=== PATIENT | male | born 1960 | race American Indian/Alaskan Native ===

== ENCOUNTER 2021-02-06 20:30 | Inpatient (IN) | payer OTHER, MEDICAID ==
[2021-02-06] MEDS ORDERED: ASPIRIN 325 MG TAB PO ONE (21:40)
--- NOTE | 2021-02-06 21:41 | Emergency Department Report ---
ED Chest Pain HPI - General Chief Complaint: Chest Pain Stated Complaint: FAST HEART BEAT PUI?: No Time Seen by Provider: 02/06/21 21:36 Source: patient, EMS Mode of arrival: Stretcher Limitations: No Limitations - History of Present Illness Initial Comments: Patient is a 60-year-old male who presents emergency room with complaints of chest pain, palpitations and shortness of breath. Patient states his symptoms started approximately 3 hours prior to arrival. Patient states that his symptoms are worsening. Patient states his symptoms exacerbated called EMS. Patient states his chest pain, palpitations shortness of breath are better with rest. Patient states that his chest pain, shortness of breath and palpitations are worse with exertion and movement. Patient denies fever and chills. Patient denies cough. Patient also complains of right foot pain. Patient states he stepped in a hole and injured his right foot. Patient states his right foot pain is a 10 out of 10. Patient states that pain is better with rest and worse with movement and palpation and walking. Patient denies calf pain. Patient states his right foot is swollen. Patient denies other trauma. Patient denies recent travel. Patient denies recent international travel. Patient denies exposure to the novel coronavirus. Patient denies sick contacts. Patient denies fever and chills. Patient denies cough. Patient denies diarrhea. Patient denies coming in contact with anybody with symptoms of the novel coronavirus. MD Complaint: chest pain -: Sudden Onset: during rest Pain Location: substernal, left chest Pain Radiation: none Severity: severe Severity scale (0 -10): 10 Quality: sharp Consistency: constant Improves With: rest Worsens With: exertion re: dyspnea. denies: nausea, vomting, diaphoresis, sense of impending doom Other Symptoms: palpitations. denies: cough, fever, syncope, rash, acid taste in mouth, leg swelling Treatments Prior to Arrival: none Aspirin use within the Past 7 Days: (1) Yes - Related Data On Oral Contraceptives: No Allergies Allergy/AdvReac Type Severity Reaction Status Date / Time No Known Allergies Allergy Verified 02/06/21 22:28 Heart Score - HEART Score History: Moderately suspicious EKG: Non-specific Age: 45-65 Risk factors: > 3 risk factors or hx of atherosclerotic disease Troponin: < normal limit HEART Score: 5 - EKG Read Time Time EKG Completed: 22:03 EKG Read Time: 22:05 ED Review of Systems ROS: Stated complaint: FAST HEART BEAT Other details as noted in HPI Constitutional: denies: chills, fever Eyes: denies: eye pain, eye discharge, vision change ENT: denies: ear pain, throat pain Respiratory: see HPI, shortness of breath. denies: cough, wheezing Cardiovascular: as per HPI, chest pain, palpitations, dyspnea on exertion Endocrine: no symptoms reported Gastrointestinal: denies: abdominal pain, nausea, vomiting, diarrhea Genitourinary: denies: urgency, dysuria Musculoskeletal: denies: back pain, joint swelling, arthralgia Skin: denies: rash, lesions Neurological: denies: headache, weakness, paresthesias Psychiatric: denies: anxiety, depression Hematological/Lymphatic: denies: easy bleeding, easy bruising ED Past Medical Hx - Past Medical History Previous Medical History?: Yes Hx Hypertension: Yes Hx Heart Attack/AMI: Yes Additional medical history: Hyperlipidemia - Surgical History Past Surgical History?: No - Family History Family history: no significant - Social History Smoking Status: Current Every Day Smoker Substance Use Type: None ED Physical Exam - General Limitations: No Limitations General appearance: alert, in no apparent distress - Head Head exam: Present: atraumatic, normocephalic - Eye Eye exam: Present: normal appearance - ENT ENT exam: Present: mucous membranes moist - Neck Neck exam: Present: normal inspection - Respiratory Respiratory exam: Present: normal lung sounds bilaterally. Absent: respiratory distress, wheezes, rales - Cardiovascular Cardiovascular Exam: Present: regular rate, normal rhythm, normal heart sounds. Absent: systolic murmur, diastolic murmur, rubs, gallop - GI/Abdominal GI/Abdominal exam: Present: soft, normal bowel sounds. Absent: distended, tenderness, guarding - Rectal Rectal exam: Present: deferred - Extremities Exam Extremities exam: Present: normal inspection - Back Exam Back exam: Present: normal inspection - Neurological Exam Neurological exam: Present: alert, oriented X3 - Psychiatric Psychiatric exam: Present: normal affect, normal mood - Skin Skin exam: Present: warm, dry, intact, normal color. Absent: rash ED Course Vital Signs 02/06/21 02/06/21 02/06/21 21:34 21:42 22:03 Temperature 98.8 F Pulse Rate 112 H 93 H Respiratory Rate Blood Pressure O2 Sat by Pulse 95 Oximetry 02/06/21 02/06/21 02/06/21 22:12 22:15 22:30 Temperature Pulse Rate 103 H 102 H 108 H Respiratory 19 23 16 Rate Blood Pressure O2 Sat by Pulse 98 99 98 Oximetry 02/06/21 02/06/21 02/06/21 22:45 23:01 23:15 Temperature Pulse Rate 106 H 103 H 100 H Respiratory 18 23 18 Rate Blood Pressure O2 Sat by Pulse 95 96 96 Oximetry 02/06/21 02/06/21 02/06/21 23:31 23:45 23:53 Temperature Pulse Rate 91 H 107 H 93 H Respiratory 14 13 18 Rate Blood Pressure 143/76 120/66 120/66 O2 Sat by Pulse 92 93 99 Oximetry 02/07/21 02/07/21 02/07/21 00:01 00:03 00:15 Temperature Pulse Rate 106 H 96 H 103 H Respiratory 15 14 20 Rate Blood Pressure 129/84 129/84 121/77 O2 Sat by Pulse 93 95 95 Oximetry 02/07/21 02/07/21 02/07/21 00:31 00:45 01:01 Temperature Pulse Rate 92 H 93 H 97 H Respiratory 19 17 12 Rate Blood Pressure 135/74 129/70 128/72 O2 Sat by Pulse 95 94 94 Oximetry 02/07/21 02/07/21 02/07/21 01:15 01:31 01:45 Temperature Pulse Rate 95 H 97 H 89 Respiratory 18 18 17 Rate Blood Pressure 118/63 109/73 120/69 O2 Sat by Pulse 93 92 97 Oximetry 02/07/21 02/07/21 02/07/21 02:01 02:15 02:31 Temperature Pulse Rate 96 H 97 H 94 H Respiratory 19 15 17 Rate Blood Pressure 111/63 118/68 139/92 O2 Sat by Pulse 94 95 94 Oximetry 02/07/21 02/07/21 02/07/21 02:45 03:01 03:15 Temperature Pulse Rate 91 H 96 H 94 H Respiratory 15 16 17 Rate Blood Pressure 123/82 128/88 116/75 O2 Sat by Pulse 93 96 97 Oximetry 02/07/21 02/07/21 02/07/21 03:31 03:45 04:01 Temperature Pulse Rate 88 71 80 Respiratory 19 12 20 Rate Blood Pressure 102/75 116/75 117/75 O2 Sat by Pulse 94 96 93 Oximetry 02/07/21 02/07/21 02/07/21 04:15 04:31 04:45 Temperature Pulse Rate 81 79 90 Respiratory 11 L 13 17 Rate Blood Pressure 114/76 110/70 111/70 O2 Sat by Pulse 95 95 96 Oximetry 02/07/21 02/07/21 02/07/21 05:01 05:15 05:31 Temperature Pulse Rate 85 86 79 Respiratory 23 16 13 Rate Blood Pressure 110/58 118/64 131/93 O2 Sat by Pulse 90 90 99 Oximetry - Reevaluation(s) Reevaluation #1: Patient states he is feeling better. Patient states his pain is better. Patient states his palpitations have improved. 02/06/21 23:10 Reevaluation #2: I discussed all results with patient. I discussed plan of care with patient. Patient agrees with plan of care and admission. Patient to be admitted to the hospitalist service. 02/07/21 00:32 - Consultations Consultation #1: Hospitalist consulted for admission. Hospitalist to admit patient. 02/07/21 00:33 ALYCIA score - Alycia Score Age > 65: (0) No Aspirin use within the Past 7 Days: (1) Yes 3 or more CAD Risk Factors: (1) Yes 2 or more Angina events in past 24 hrs: (1) Yes Known CAD with more than 50% Stenosis: (0) No Elevated Cardiac Markers: (0) No ST Deviation Greater than 0.5mm: (0) No ALYCIA Score: 3 ED Medical Decision Making - Lab Data Result diagrams: 02/07/21 03:07 02/07/21 03:07 - EKG Data -: EKG Interpreted by Me EKG shows normal: axis, intervals, QRS complexes, ST-T waves Rate: normal - EKG Data Interpretation: other (Atrial fibrillation) - Radiology Data Radiology results: report reviewed, image reviewed interpreted by me: Chest x-ray: No pneumonia, no pneumothorax, no foreign body, no osseous fi ndings, no acute findings CHEST 1 VIEW INDICATION: Chest Pain. Generalized chest pain for the past several days COMPARISON: None FINDINGS: SUPPORT DEVICES: None. HEART: Within normal limits. LUNGS/PLEURA: No acute air space or interstitial disease. ADDITIONAL FINDINGS: None. IMPRESSION: 1. No acute findings. Right foot-2 views INDICATION: FOOT PAIN.. COMPARISON: None. IMPRESSION: Tiny corticated density at the tip of the lateral malleolus could represent a subacute/chronic avulsion injury. Otherwise no acute osseous normality. Mild generalized soft tissue swelling throughout the foot. Normal alignment. Mild generalized degenerative changes throughout the foot. - Medical Decision Making Patient is a 60-year-old male who presents emergency room with complaints of chest pain, shortness of breath and palpitations. Patient also complained of right foot pain after injury. Patient had an EKG which shows A. fib. Patient does have a history of A. fib 6 new-onset A. fib. Patient's ST segments are normal. Patient's EKG does not show a STEMI. I personally reviewed EKG. Patient had a chest x-ray which is negative for acute finding. I personally reviewed the chest x-ray. Patient had labs done which were essentially unre markable. Patient troponin was negative. Patient had a right foot x-ray for his right foot pain and it was negative for acute finding but shows subacute avulsion injury. Patient will be instructed to follow-up with a orthopedist after discharge from the hospital. Patient admitted to the hospital service for further evaluation treatment and rule out ACS. Critical care time documented due to the multiple reassessments, prolonged time at the bedside, interpretation of diagnostics and labs. - Differential Diagnosis Chest pain, ACS, palpitations, A. fib, electrolyte imbalance, Critical Care Time: Yes Critical care time in (mins) excluding proc time.: 35 Critical care attestation.: If time is entered above; I have spent that time in minutes in the direct care of this critically ill patient, excluding procedure time. Critical Care Time: 35 minutes ED Disposition Clinical Impression: New onset atrial fibrillation, Shortness of breath, Right foot pain Chest pain Qualifiers: Chest pain type: unspecified Qualified Code(s): R07.9 - Chest pain, unspecified Contusion, foot Qualifiers: Encounter type: initial encounter Laterality: right Qualified Code(s): S90.31XA - Contusion of right foot, initial encounter Disposition: 09 OP ADMIT IP TO THIS HOSP Is pt being admited?: Yes Does the pt Need Aspirin: No Condition: Critical Time of Disposition: 00:32
--- NOTE | 2021-02-06 22:09 | XRay Report ---
CHEST 1 VIEW INDICATION: Chest Pain. Generalized chest pain for the past several days COMPARISON: None FINDINGS: SUPPORT DEVICES: None. HEART: Within normal limits. LUNGS/PLEURA: No acute air space or interstitial disease. ADDITIONAL FINDINGS: None. IMPRESSION: 1. No acute findings. Signer Name: Ashwin Covarrubias MD Signed: 02/06/2021 10:05 PM Workstation Name: [id number]
--- NOTE | 2021-02-06 22:12 | XRay Report ---
Right foot-2 views INDICATION: FOOT PAIN.. COMPARISON: None. IMPRESSION: Tiny corticated density at the tip of the lateral malleolus could represent a subacute/c hronic avulsion injury. Otherwise no acute osseous normality. Mild generalized soft tissue swelling throughout the foot. Normal alignment. Mild generalized degenerative changes throughout the foot. Signer Name: Ashwin Covarrubias MD Signed: 02/06/2021 10:07 PM Workstation Name: [id number]
[2021-02-06 22:24] LABS: Basophils # (Auto) 0.1 K/mm3 (0.0-0.1); Eosinophils # (Auto) 0.1 K/mm3 (0.0-0.4); Eosinophils % (Auto) 1.7 % (0.0-4.3); Hematocrit 38.5 % (35.5-45.6); Hemoglobin 13.1 gm/dl (11.8-15.2); Lymphocytes % (Auto) 23.5 % (13.4-35.0); Mean Corpuscular HGB Conc 34 % (32-34); Mean Corpuscular Volume 90 fl (84-94); Monocytes # (Auto) 0.9 K/mm3 (0.0-0.8); Monocytes % (Auto) 10.2 % (0.0-7.3); Platelet Count 315 K/mm3 (140-440); Red Blood Count 4.28 M/mm3 (3.65-5.03); Red Cell Distribution Width 15.5 % (13.2-15.2)
[2021-02-06] MEDS ORDERED: MORPHINE 4 MG/1 ML INJ IV ONE (22:27)
[2021-02-06] MEDS ORDERED: ONDANSETRON 4 MG/2 ML INJ IV ONE (22:27)
[2021-02-06] MEDS ORDERED: MORPHINE 2 MG/1 ML INJ IV ONE (22:29)
[2021-02-06 22:32] LABS: Alanine Aminotransferase 26 units/L (7-56); Albumin 3.7 g/dL (3.9-5); BUN/Creatinine Ratio 22; Blood Urea Nitrogen 26 mg/dL (9-20); Hemolysis Index 3
[2021-02-06 22:39] LABS: INR 0.94 (0.87-1.13); Partial Thromboplastin Time 30.9 Sec. (24.2-36.6)
[2021-02-07] MEDS ORDERED: ACETAMINOPHEN 325 MG TAB PO PRN (02:42)
[2021-02-07] MEDS ORDERED: traMADol 50 MG TAB PO PRN (02:42)
[2021-02-07] MEDS ORDERED: NITROGLYCERIN 0.4 MG TAB SUBL SL PRN (02:42)
--- NOTE | 2021-02-07 02:49 | History and Physical Report ---
History of Present Illness Date of examination: 02/07/21 Date of admission: 02/07/21 00:36 Chief complaint: Chest pain History of present illness: 60-year-old male with past medical history of hypertension, heart attack, hyperlipidemia was brought to the emergency room because of chest pain, palpitations and shortness of breath for 3 hours prior to arrival. Chest pain is sharp 10/10 substernal and left-sided. Patient states that his symptoms are worsening. Patient states his symptoms exacerbated called EMS. Patient states his chest pain, palpitations shortness of breath are better with rest. Patient states that his chest pain, shortness of breath and palpitations are worse with exertion and movement. Patient denies fever and chills. Patient denies cough. Patient also complains of right foot pain. Patient states he stepped in a hole and injured his right foot. Patient states his right foot pain is a 10 out of 10. Patient states that pain is better with rest and worse with movement and palpation and walking. Patient denies calf pain. Patient states his right foot is swollen. Patient denies other trauma. In the emergency room initial cardiac enzyme is negative troponin is 0.010 Past History Past Medical History: hypertension, hyperlipidemia (Heart attack), other Medications and Allergies Allergies Allergy/AdvReac Type Severity Reaction Status Date / Time No Known Allergies Allergy Verified 02/06/21 22:28 Review of Systems Cardiovascular: chest pain, palpitations, rapid/irregular heart beat Musculoskeletal: other (Right foot pain) Exam - Constitutional Vitals: Temp Pulse Resp BP Pulse Ox 98.8 F 97 H 12 128/72 94 02/06/21 21:34 02/07/21 01:01 02/07/21 01:01 02/07/21 01:01 02/07/21 01:01 General appearance: Present: no acute distress, well-nourished - EENT Eyes: Present: PERRL ENT: hearing intact, clear oral mucosa - Neck Neck: Present: supple, normal ROM - Respiratory Respiratory effort: normal Respiratory: bilateral: diminished - Cardiovascular Rhythm: irregularly irregular Heart Sounds: Present: S1 & S2. Absent: rub, click - Extremities Extremities: pulses symmetrical, No edema Peripheral Pulses: within normal limits - Abdominal General gastrointestinal: Present: soft, non-tender, non-distended, normal bowel sounds Male genitourinary: Present: normal - Integumentary Integumentary: Present: clear, warm, dry - Musculoskeletal Musculoskeletal: gait normal, strength equal bilaterally - Psychiatric Psychiatric: appropriate mood/affect, intact judgment & insight - Neurologic Neurologic: CNII-XII intact, moves all extremities HEART Score - HEART Score EKG: Non-specific Age: 45-65 Risk factors: > 3 risk factors or hx of atherosclerotic disease Troponin: Troponin T < 0.010 ng/mL (0.00-0.029) 02/07/21 00:47 Troponin: < normal limit Results - Labs CBC & Chem 7: 02/06/21 21:47 02/06/21 21:47 Labs: Laboratory Last Values WBC 8.4 K/mm3 (4.5-11.0) 02/06/21 21:47 RBC 4.28 M/mm3 (3.65-5.03) 02/06/21 21:47 Hgb 13.1 gm/dl (11.8-15.2) 02/06/21 21:47 Hct 38.5 % (35.5-45.6) 02/06/21 21:47 MCV 90 fl (84-94) 02/06/21 21:47 MCH 31 pg (28-32) 02/06/21 21:47 MCHC 34 % (32-34) 02/06/21 21:47 RDW 15.5 % (13.2-15.2) H 02/06/21 21:47 Plt Count 315 K/mm3 (140-440) 02/06/21 21:47 Lymph % (Auto) 23.5 % (13.4-35.0) 02/06/21 21:47 [place] % (Auto) 10.2 % (0.0-7.3) H 02/06/21 21:47 Eos % (Auto) 1.7 % (0.0-4.3) 02/06/21 21:47 Baso % (Auto) 1.0 % (0.0-1.8) 02/06/21 21:47 Lymph # (Auto) 2.0 K/mm3 (1.2-5.4) 02/06/21 21:47 [place] # (Auto) 0.9 K/mm3 (0.0-0.8) H 02/06/21 21:47 Eos # (Auto) 0.1 K/mm3 (0.0-0.4) 02/06/21 21:47 Baso # (Auto) 0.1 K/mm3 (0.0-0.1) 02/06/21 21:47 Seg Neutrophils % 63.6 % (40.0-70.0) 02/06/21 21:47 Seg Neutrophils # 5.4 K/mm3 (1.8-7.7) 02/06/21 21:47 PT 13.1 Sec. (12.2-14.9) 02/06/21 21:47 INR 0.94 (0.87-1.13) 02/06/21 21:47 APTT 30.9 Sec. (24.2-36.6) 02/06/21 21:47 Sodium 136 mmol/L (137-145) L 02/06/21 21:47 Potassium 4.1 mmol/L (3.6-5.0) 02/06/21 21:47 Chloride 104.7 mmol/L (98-107) 02/06/21 21:47 Carbon Dioxide 22 mmol/L (22-30) 02/06/21 21:47 Anion Gap 13 mmol/L 02/06/21 21:47 BUN 26 mg/dL (9-20) H 02/06/21 21:47 Creatinine 1.2 mg/dL (0.8-1.3) 02/06/21 21:47 Estimated GFR > 60 ml/min 02/06/21 21:47 BUN/Creatinine Ratio 22 % 02/06/21 21:47 Glucose 110 mg/dL (75-100) H 02/06/21 21:47 Calcium 9.0 mg/dL (8.4-10.2) 02/06/21 21:47 Total Bilirubin 0.20 mg/dL (0.1-1.2) 02/06/21 21:47 AST 20 units/L (5-40) 02/06/21 21:47 ALT 26 units/L (7-56) 02/06/21 21:47 Alkaline Phosphatase 101 units/L (35-129) 02/06/21 21:47 Troponin T < 0.010 ng/mL (0.00-0.029) 02/07/21 00:47 Total Protein 7.2 g/dL (6.3-8.2) 02/06/21 21:47 Albumin 3.7 g/dL (3.9-5) L 02/06/21 21:47 Albumin/Globulin Ratio 1.1 % 02/06/21 21:47 - Imaging and Cardiology Chest x-ray: report reviewed Assessment and Plan VTE prophylaxis?: Chemical Plan of care discussed with patient/family: Yes - Patient Problems (1) Acute coronary syndrome Current Visit: Yes Status: Acute Plan to address problem: Admit the patient to the medical telemetry. Aspirin 325 mg p.o. daily. Lipitor 40 mg p.o. daily. Nitroglycerin as needed. Morphine 2 mg IV every 4 hours as needed. We will do the serial cardiac enzyme. Echocardiogram. Cardiology evaluation (2) New onset atrial fibrillation Current Visit: Yes Status: Acute Plan to address problem: Lopressor 25 mg p.o. twice daily. We will do the serial cardiac enzyme. Echocardiogram. Will consult cardiology for evaluation. Heparin 5000 units subcu every 8 hours (3) Hypertension Current Visit: Yes Status: Acute Plan to address problem: Lopressor 25 mg p.o. twice daily. Hydralazine 10 mg IV every 6 hours as needed. We continue the home medication (4) Hyperlipidemia Current Visit: Yes Status: Acute Plan to address problem: Lipitor 40 mg p.o. daily. We recheck the lipid panel in the morning (5) Right foot pain Current Visit: Yes Status: Acute Plan to address problem: Tylenol 650 mg p.o. every 6 hours as needed. Morphine 2 mg IV every 4 hours as needed. We will monitor the patient closely. If needed will consult orthopedic (6) DVT prophylaxis Current Visit: Yes Status: Acute Plan to address problem: Heparin 5000 units subcu every 8 hours for DVT prophylaxis. Protonix 40 mg p.o. daily for GI prophylaxis. Patient is a full code.
[2021-02-07] MEDS ORDERED: hydrALAZINE 20 MG/1 ML INJ IV PRN (02:54)
[2021-02-07] MEDS: MORPHINE 4 MG/1 ML INJ IV PRN ×3 (03:10→16:14)
[2021-02-07 03:40] LABS: Basophils # (Auto) 0.1 K/mm3 (0.0-0.1); Basophils % (Auto) 0.9 % (0.0-1.8); Eosinophils # (Auto) 0.3 K/mm3 (0.0-0.4); Eosinophils % (Auto) 3.3 % (0.0-4.3); Hematocrit 36.5 % (35.5-45.6); Hemoglobin 12.8 gm/dl (11.8-15.2); Lymphocytes # (Auto) 2.1 K/mm3 (1.2-5.4); Mean Corpuscular HGB Conc 35 % (32-34); Mean Corpuscular Volume 88 fl (84-94); Monocytes # (Auto) 0.9 K/mm3 (0.0-0.8); Monocytes % (Auto) 10.7 % (0.0-7.3); Platelet Count 326 K/mm3 (140-440); Red Blood Count 4.13 M/mm3 (3.65-5.03); Red Cell Distribution Width 15.8 % (13.2-15.2)
[2021-02-07 03:47] LABS: BUN/Creatinine Ratio 27; Blood Urea Nitrogen 27 mg/dL (9-20); Calcium 9.3 mg/dL (8.4-10.2); Chol/HDL Ratio 3.13 %; HDL Cholesterol 46 mg/dL (40-59); Hemolysis Index 2; LDL Cholesterol,Direct 95 mg/dL (50-130)
[2021-02-07] MEDS ORDERED: HEPARIN 5,000 UNIT/1 ML VIAL SUB-Q SCH (06:00)
--- NOTE | 2021-02-07 11:24 | Consultation ---
History of Present Illness Consult date: 02/07/21 Consult reason: atrial fibrillation History of present illness: This is a 60-year old M who is homeless but usually receives his care at the [facility]. He presents to this hospital with complaints of chest pain. Chest pain is poorly characterized and non-exertional. Denies shortness of breath and denies palpitations. No lower extremity edema. Troponin measurements were normal. Chest x-ray reports no evidence of interstitial edema. An ECG done shows atrial fibrillation with a well controlled ventricular rate. A cardiac consultation has been requested for atrial fibrillation. Patient reports a history of atrial fibrillation. Medications at the bedside shows he takes metoprolol for rate control but it is unclear what he takes for oral anticoagulation. Patient states he did not bring all his medications with him. He denies recent cardiac workup. Past History Past Medical History: atrial fib, hypertension, hyperlipidemia Medications and Allergies Allergies Allergy/AdvReac Type Severity Reaction Status Date / Time No Known Allergies Allergy Verified 02/07/21 10:57 Active Meds: Active Medications Acetaminophen (Acetaminophen 325 Mg Tab) 650 mg PO Q6H PRN PRN Reason: Pain, Mild (1-3) Aspirin (Aspirin Ec 325 Mg Tab) 325 mg PO QDAY [facility]R[place]O Atorvastatin Calcium (Atorvastatin 40 Mg Tab) 40 mg PO QHS [facility] Heparin Sodium (Porcine) (Heparin 5,000 Unit/1 Ml Vial) 5,000 unit SUB-Q Q8HR [facility]R[place]O Last Admin: 02/07/21 05:35 Dose: 5,000 unit Documented by: Hydralazine HCl (Hydralazine 20 Mg/1 Ml Inj) 10 mg IV Q6H PRN PRN Reason: Blood Pressure Metoprolol Tartrate (Metoprolol Tartrate 25 Mg Tab) 25 mg PO BID CATRACHO Morphine Sulfate (Morphine 4 Mg/1 Ml Inj) 2 mg IV Q5MIN PRN PRN Reason: Chest Pain Last Admin: 02/07/21 11:02 Dose: 2 mg Documented by: Nitroglycerin (Nitroglycerin 0.4 Mg Tab Subl) 0.4 mg SL Q5M PRN PRN Reason: Chest Pain Pantoprazole Sodium (Pantoprazole 40 Mg Tab) 40 mg PO QDAY CATRACHO Sodium Chloride (Sodium Chloride 0.9% 10 Ml Flush Syringe) 10 ml IV PRN PRN PRN Reason: LINE FLUSH Tramadol HCl (Tramadol 50 Mg Tab) 50 mg PO Q6H PRN PRN Reason: Pain, Moderate (4-6) Review of Systems Cardiovascular: chest pain, no palpitations, no shortness of breath Physical Examination Vital Signs Temp Pulse 98.8 F 112 H 02/06/21 21:34 02/06/21 21:34 General appearance: no acute distress HEENT: Positive: PERRL Neck: Positive: trachea midline Cardiac: Positive: irregularly irregular Lungs: Positive: Decreased Breath Sounds Neuro: Positive: Grossly Intact Extremities: Absent: edema Results 02/07/21 03:07 02/07/21 03:07 Cardiac Enzymes 02/06/21 Range/Units 21:47 AST 20 (5-40) units/L Coagulation 02/06/21 Range/Units 21:47 PT 13.1 (12.2-14.9) Sec. INR 0.94 (0.87-1.13) APTT 30.9 (24.2-36.6) Sec. Lipids 02/07/21 Range/Units 03:07 Triglycerides 74 (2-149) mg/dL Cholesterol 144 (50-199) mg/dL HDL Cholesterol 46 (40-59) mg/dL Cholesterol/HDL Ratio 3.13 % CBC 02/06/21 02/07/21 Range/Units 21:47 03:07 WBC 8.4 8.2 (4.5-11.0) K/mm3 RBC 4.28 4.13 (3.65-5.03) M/mm3 Hgb 13.1 12.8 (11.8-15.2) gm/dl Hct 38.5 36.5 (35.5-45.6) % Plt Count 315 326 (140-440) K/mm3 Lymph # (Auto) 2.0 2.1 (1.2-5.4) K/mm3 [place] # (Auto) 0.9 H 0.9 H (0.0-0.8) K/mm3 Eos # (Auto) 0.1 0.3 (0.0-0.4) K/mm3 Baso # (Auto) 0.1 0.1 (0.0-0.1) K/mm3 Comprehensive Metabolic Panel 02/06/21 02/07/21 Range/Units 21:47 03:07 Sodium 136 L 138 (137-145) mmol/L Potassium 4.1 4.3 (3.6-5.0) mmol/L Chloride 104.7 103.4 (98-107) mmol/L Carbon Dioxide 22 25 (22-30) mmol/L BUN 26 H 27 H (9-20) mg/dL Creatinine 1.2 1.0 (0.8-1.3) mg/dL Glucose 110 H 120 H (75-100) mg/dL Calcium 9.0 9.3 (8.4-10.2) mg/dL AST 20 (5-40) units/L ALT 26 (7-56) units/L Alkaline Phosphatase 101 (35-129) units/L Total Protein 7.2 (6.3-8.2) g/dL Albumin 3.7 L (3.9-5) g/dL Assessment and Plan Atrial fibrillation, chronic Chest pain, atypical Echocardiogram for LVEF assessment. Obtain records from the [facility]. CanDiag thallium stress test before discharge. Continue metoprolol for atrial fibrillation. Will use Eliquis for oral anticoagulation.
[2021-02-07] MEDS: PANTOPRAZOLE 40 MG TAB PO SCH (11:39)
[2021-02-07] MEDS: METOPROLOL TARTRATE 25 MG TAB PO SCH ×2 (11:39→22:43)
--- NOTE | 2021-02-07 12:49 | Event Note ---
Date: 02/07/21 Patient with chest pain. For stress test tomorrow. I have seen and examined him. He also has many social needs.
[2021-02-07] MEDS: SPIRONOLACTONE 25 MG TAB PO SCH (13:41)
[2021-02-07] MEDS: FUROSEMIDE 20 MG TAB PO SCH (13:41)
[2021-02-07] MEDS: LISINOPRIL 5 MG TAB PO SCH (13:41)
[2021-02-07 13:48] LABS: Hematocrit 40.7 % (35.5-45.6); Hemoglobin 13.3 gm/dl (11.8-15.2); Mean Corpuscular HGB Conc 33 % (32-34); Mean Corpuscular Volume 89 fl (84-94); Platelet Count 375 K/mm3 (140-440); Red Blood Count 4.55 M/mm3 (3.65-5.03); Red Cell Distribution Width 15.6 % (13.2-15.2)
[2021-02-07 14:00] LABS: INR 1.16 (0.87-1.13)
[2021-02-07 14:01] LABS: Partial Thromboplastin Time 31.9 Sec. (24.2-36.6)
[2021-02-07] MEDS: APIXABAN 5 MG TAB PO SCH (22:43)
[2021-02-08] MEDS ORDERED: oxyCODONE /ACETAMINOPHEN 5-325MG TAB PO ONE ×2 (00:56→08:00)
[2021-02-08] MEDS ORDERED: REGADENOSON 0.4 MG/5 ML INJ IV ONE (07:47)
--- NOTE | 2021-02-08 09:14 | Electrocardiograph Report ---
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
--- NOTE | 2021-02-08 09:19 | Electrocardiograph Report ---
[facility] Test Date: 2021-02-07 Test Time: 10:10:20 Pat Name: RENEE MEANS JR Department: Room: A467 1 Gender: M Environmental Systems Coordinator: JACQUELIN : 1960 Requested By: RUFINA MURRAY Order Number: [id number] Reading MD: Ryan Sidhu Measurements Intervals [place] Rate: 73 P: [place]: QRS: 31 QRSD: 95 T: 48 QT: 401 QTc: 450 Interpretive Statements Atrial fibrillation nonspecific st-t Compared to ECG 02/06/2021 22:03:10 Low QRS voltage now present Electronically Signed On 02-08-2021 9:19:09 EDT by Ryan Sidhu
--- NOTE | 2021-02-08 09:23 | Electrocardiograph Report ---
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
[2021-02-08] MEDS ORDERED: SODIUM CHLORIDE 0.9% 500 ML 500 ML ONE (09:29)
--- NOTE | 2021-02-08 09:38 | Progress Note ---
Assessment and Plan - Patient Problems (1) Shortness of breath Current Visit: Yes Status: Acute Plan to address problem: Shortness of breath may represent decompensation of heart failure. His presenting chest x-ray showed clear lungs, we will repeat chest x-ray to assess for intercurrent interstitial edema. We will begin treatment with intravenous milrinone in addition to diuretics. (2) Atrial fibrillation Current Visit: Yes Status: Acute Plan to address problem: Atrial fibrillation of uncertain duration and chronicity, we will continue rate control therapy and oral anticoagulation. (3) Dilated cardiomyopathy Current Visit: Yes Status: Acute Plan to address problem: Patient's four-chamber cardiomyopathy is likely of longstanding, we do not yet have his records from the [facility] for review. Continue guideline directed medical therapy as tolerated, patient completed a Lexiscan thallium stress test today for ischemic evaluation, results are pending. Subjective Date of service: 02/08/21 Interval history: Patient completed Lexiscan stress test this morning, results are pending. He remains in atrial fibrillation, with a well-controlled ventricular rate. This morning, he appears a little bit more dyspneic than on presentation, but no chest pain and no edema. Objective Vital Signs Temp Pulse Pulse Resp BP BP Pulse Ox 02/08/21 04:22 97.2 F L 87 18 105/61 94 02/08/21 01:00 20 97 02/08/21 00:00 87 02/07/21 22:43 101 H 127/78 02/07/21 22:40 97.4 F L 77 18 127/78 97 02/07/21 16:30 97.7 F 86 18 131/95 93 02/07/21 13:41 80 136/82 02/07/21 13:23 80 18 97 02/07/21 12:00 97.8 F 76 18 136/82 97 02/07/21 11:39 73 124/66 02/07/21 10:03 124/66 - Physical Examination General: Other (Mild dyspnea) HEENT: Positive: PERRL Neck: Positive: trachea midline Cardiac: Positive: irregularly irregular Lungs: Positive: Decreased Breath Sounds Neuro: Positive: Grossly Intact Abdomen: Positive: Soft Extremities: Absent: edema - Labs and Meds Coagulation 02/07/21 Range/Units 12:46 PT 15.4 H (12.2-14.9) Sec. INR 1.16 H (0.87-1.13) APTT 31.9 (24.2-36.6) Sec. CBC 02/07/21 Range/Units 12:46 WBC 7.9 (4.5-11.0) K/mm3 RBC 4.55 (3.65-5.03) M/mm3 Hgb 13.3 (11.8-15.2) gm/dl Hct 40.7 (35.5-45.6) % Plt Count 375 (140-440) K/mm3 Comprehensive Metabolic Panel 02/07/21 Range/Units 12:46 Creatinine 0.9 (0.8-1.3) mg/dL
[2021-02-08] MEDS ORDERED: ASPIRIN EC 325 MG TAB PO SCH (10:00)
--- NOTE | 2021-02-08 10:13 | Progress Note ---
Assessment and Plan Assessment and plan: 1) Acute coronary syndrome Current Visit: Yes Status: Acute Plan to address problem: Admit the patient to the medical telemetry. Aspirin 325 mg p.o. daily. Lipitor 40 mg p.o. daily. Nitroglycerin as needed. Morphine 2 mg IV every 4 hours as needed. We will do the serial cardiac enzyme. Echocardiogram. Cardiology ev aluation (2) New onset atrial fibrillation Current Visit: Yes Status: Acute Plan to address problem: Lopressor 25 mg p.o. twice daily. We will do the serial cardiac enzyme. Echocardiogram. Will consult cardiology for evaluation. Heparin 5000 units subcu every 8 hours (3) Hypertension Current Visit: Yes Status: Acute Plan to address problem: Lopressor 25 mg p.o. twice daily. Hydralazine 10 mg IV every 6 hours as needed. We continue the home medication (4) Hyperlipidemia Current Visit: Yes Status: Acute Plan to address problem: Lipitor 40 mg p.o. daily. We recheck the lipid panel in the morning (5) Right foot pain Current Visit: Yes Status: Acute Plan to address problem: Tylenol 650 mg p.o. every 6 hours as needed. Morphine 2 mg IV every 4 hours as needed. We will monitor the patient closely. If needed will consult orthopedic (6) DVT prophylaxis Current Visit: Yes Status: Acute Plan to address problem: Heparin 5000 units subcu every 8 hours for DVT prophylaxis. Protonix 40 mg p.o. daily for GI prophylaxis. Patient is a full code. 02/08/21 Patient with hypertension, hyperlipidemia, presents with chest pain. EF 20-25%. Patient started on Milrinone drip for possible acute systolic CHF, as per cardiology Patient needs social service. he is homeless. Quality Lab Technician aware. History Interval history: Chest pain Hospitalist Physical - Physical exam Narrative exam: Gen:Not in acute distress, lying in bed HEENT:Normocephalic, atraumatic Neck:supple, no JVD Lungs:clear to auscultation, bilaterally, no wheeze Heart:S1 and S2 reg, no murmurs, rubs or gallop Abd:Soft, non tender, non distended, normal bowel sounds Ext:No edema. no clubbing, no cyanosis Neuro:Awake,alert, - Constitutional Vitals: Temp Pulse Resp BP Pulse Ox 97.2 F L 87 18 105/61 94 02/08/21 04:22 02/08/21 04:22 02/08/21 04:22 02/08/21 04:22 02/08/21 04:22 General appearance: Present: no acute distress HEART Score - HEART Score EKG: Non-specific Age: 45-65 Risk factors: > 3 risk factors or hx of atherosclerotic disease Troponin: Troponin T < 0.010 ng/mL (0.00-0.029) 02/07/21 12:46 Troponin: < normal limit Results - Labs CBC & Chem 7: 02/07/21 12:46 02/07/21 12:46 Labs: Laboratory Last Values WBC 7.9 K/mm3 (4.5-11.0) 02/07/21 12:46 RBC 4.55 M/mm3 (3.65-5.03) 02/07/21 12:46 Hgb 13.3 gm/dl (11.8-15.2) 02/07/21 12:46 Hct 40.7 % (35.5-45.6) 02/07/21 12:46 MCV 89 fl (84-94) 02/07/21 12:46 MCH 29 pg (28-32) 02/07/21 12:46 MCHC 33 % (32-34) 02/07/21 12:46 RDW 15.6 % (13.2-15.2) H 02/07/21 12:46 Plt Count 375 K/mm3 (140-440) 02/07/21 12:46 Lymph % (Auto) 26.0 % (13.4-35.0) 02/07/21 03:07 [place] % (Auto) 10.7 % (0.0-7.3) H 02/07/21 03:07 Eos % (Auto) 3.3 % (0.0-4.3) 02/07/21 03:07 Baso % (Auto) 0.9 % (0.0-1.8) 02/07/21 03:07 Lymph # (Auto) 2.1 K/mm3 (1.2-5.4) 02/07/21 03:07 [place] # (Auto) 0.9 K/mm3 (0.0-0.8) H 02/07/21 03:07 Eos # (Auto) 0.3 K/mm3 (0.0-0.4) 02/07/21 03:07 Baso # (Auto) 0.1 K/mm3 (0.0-0.1) 02/07/21 03:07 Seg Neutrophils % 59.1 % (40.0-70.0) 02/07/21 03:07 Seg Neutrophils # 4.8 K/mm3 (1.8-7.7) 02/07/21 03:07 PT 15.4 Sec. (12.2-14.9) H 02/07/21 12:46 INR 1.16 (0.87-1.13) H 02/07/21 12:46 APTT 31.9 Sec. (24.2-36.6) 02/07/21 12:46 Sodium 138 mmol/L (137-145) 02/07/21 03:07 Potassium 4.3 mmol/L (3.6-5.0) 02/07/21 03:07 Chloride 103.4 mmol/L (98-107) 02/07/21 03:07 Carbon Dioxide 25 mmol/L (22-30) 02/07/21 03:07 Anion Gap 14 mmol/L 02/07/21 03:07 BUN 27 mg/dL (9-20) H 02/07/21 03:07 Creatinine 0.9 mg/dL (0.8-1.3) 02/07/21 12:46 Estimated GFR > 60 ml/min 02/07/21 12:46 BUN/Creatinine Ratio 27 % 02/07/21 03:07 Glucose 120 mg/dL (75-100) H 02/07/21 03:07 POC Glucose 107 mg/dL (70-105) H 02/08/21 07:30 Calcium 9.3 mg/dL (8.4-10.2) 02/07/21 03:07 Total Bilirubin 0.20 mg/dL (0.1-1.2) 02/06/21 21:47 AST 20 units/L (5-40) 02/06/21 21:47 ALT 26 units/L (7-56) 02/06/21 21:47 Alkaline Phosphatase 101 units/L (35-129) 02/06/21 21:47 Troponin T < 0.010 ng/mL (0.00-0.029) 02/07/21 12:46 Total Protein 7.2 g/dL (6.3-8.2) 02/06/21 21:47 Albumin 3.7 g/dL (3.9-5) L 02/06/21 21:47 Albumin/Globulin Ratio 1.1 % 02/06/21 21:47 Triglycerides 74 mg/dL (2-149) 02/07/21 03:07 Cholesterol 144 mg/dL (50-199) 02/07/21 03:07 LDL Cholesterol Direct 95 mg/dL (50-130) 02/07/21 03:07 HDL Cholesterol 46 mg/dL (40-59) 02/07/21 03:07 Cholesterol/HDL Ratio 3.13 % 02/07/21 03:07 Sotelo/IV: Voiding Method Toilet Active Medications - Current Medications Current Medications: Generic Name Dose Route Start Last Admin Trade Name Freq PRN Reason Stop Dose Admin Acetaminophen 650 mg 02/07/21 02:42 Acetaminophen 325 Mg Tab PO Q6H PRN Pain, Mild (1-3) Apixaban 5 mg 02/07/21 22:00 02/07/21 22:43 Apixaban 5 Mg Tab PO 5 mg Q12HR CATRACHO Administration Protocol Atorvastatin Calcium 40 mg 02/07/21 22:00 02/07/21 22:42 Atorvastatin 40 Mg Tab PO 40 mg QHS CATRACHO Administration Furosemide 20 mg 02/07/21 13:00 02/07/21 13:41 Furosemide 20 Mg Tab PO 20 mg QDAY CATRACHO Administration Hydralazine HCl 10 mg 02/07/21 02:54 Hydralazine 20 Mg/1 Ml Inj IV Q6H PRN SBP >/=165; DBP >/=100 Milrinone Lactate/Dextrose 20 mg in 100 mls @ 6.758 mls/hr 02/08/21 10:00 Milrinone-D5w 20 Mg/100 Ml IV 02/11/21 09:59 DIRECT CATRACHO Protocol 0.25 MCG/KG/MIN Lisinopril 2.5 mg 02/07/21 14:00 02/07/21 13:41 Lisinopril 5 Mg Tab PO 2.5 mg QDAY CATRACHO Administration Metoprolol Tartrate 25 mg 02/07/21 10:00 02/07/21 22:43 Metoprolol Tartrate 25 Mg Tab PO 25 mg BID CATRACHO Administration Morphine Sulfate 2 mg 02/07/21 02:42 02/07/21 16:14 Morphine 4 Mg/1 Ml Inj IV 2 mg Q5MIN PRN Administration Chest Pain Nitroglycerin 0.4 mg 02/07/21 02:42 Nitroglycerin 0.4 Mg Tab Subl SL Q5M PRN Chest Pain Pantoprazole Sodium 40 mg 02/07/21 10:00 02/07/21 11:39 Pantoprazole 40 Mg Tab PO 40 mg QDAY CATRACHO Administration Sodium Chloride 10 ml 02/07/21 02:42 Sodium Chloride 0.9% 10 Ml Flush Syringe IV PRN PRN LINE FLUSH Spironolactone 25 mg 02/07/21 14:00 02/07/21 13:41 Spironolactone 25 Mg Tab PO 25 mg QDAY CATRACHO Administration Tramadol HCl 50 mg 02/07/21 02:42 Tramadol 50 Mg Tab PO Q6H PRN Pain, Moderate (4-6)
[2021-02-08] MEDS: MILRINONE-D5W 20 MG/100 ML 20 MG/100 ML BAG IV SCH (11:28)
[2021-02-08] MEDS: METOPROLOL TARTRATE 25 MG TAB PO SCH ×2 (11:29→21:16)
[2021-02-08] MEDS: SPIRONOLACTONE 25 MG TAB PO SCH (11:29)
[2021-02-08] MEDS: APIXABAN 5 MG TAB PO SCH ×2 (11:29→21:16)
[2021-02-08] MEDS: PANTOPRAZOLE 40 MG TAB PO SCH (11:29)
[2021-02-08] MEDS: FUROSEMIDE 20 MG TAB PO SCH (11:30)
[2021-02-08] MEDS: MORPHINE 4 MG/1 ML INJ IV PRN (11:32)
[2021-02-08] MEDS: LISINOPRIL 5 MG TAB PO SCH (11:39)
--- NOTE | 2021-02-08 11:49 | XRay Report ---
CHEST 1 VIEW 02/08/2021 10:39 AM INDICATION / CLINICAL INFORMATION: Shortness of breath. COMPARISON: 02/06/21 FINDINGS: SUPPORT DEVICES: None. HEART / MEDIASTINUM: No significant abnormality. LUNGS / PLEURA: No significant pulmonary or pleural abnormality. No pneumothorax. ADDITIONAL FINDINGS: No significant additional findings. IMPRESSION: 1. No acute findings. Signer Name: Ramon Corona MD Signed: 02/08/2021 11:45 AM Workstation Name: [id number]
[2021-02-08] MEDS: oxyCODONE /ACETAMINOPHEN 5-325MG TAB PO PRN (17:00)
[2021-02-08] MEDS: ALPRAZolam 1 MG TAB PO PRN (21:17)
[2021-02-09] MEDS: MILRINONE-D5W 20 MG/100 ML 20 MG/100 ML BAG IV SCH ×2 (00:26→13:58)
[2021-02-09 08:22] LABS: Hematocrit 40.9 % (35.5-45.6); Hemoglobin 13.9 gm/dl (11.8-15.2); Mean Corpuscular HGB Conc 34 % (32-34); Mean Corpuscular Volume 90 fl (84-94); Platelet Count 347 K/mm3 (140-440); Red Blood Count 4.57 M/mm3 (3.65-5.03)
[2021-02-09] MEDS: APIXABAN 5 MG TAB PO SCH ×2 (09:04→21:09)
[2021-02-09] MEDS: oxyCODONE /ACETAMINOPHEN 5-325MG TAB PO PRN ×3 (09:04→22:39)
[2021-02-09] MEDS: PANTOPRAZOLE 40 MG TAB PO SCH (09:05)
--- NOTE | 2021-02-09 10:13 | Progress Note ---
Assessment and Plan 1. Atrial fibrillation with a controlled ventricular response 2. Chronic combined systolic and diastolic heart failure 3. Dilated cardiomyopathy left ventricular ejection fraction 20 to 25% 4. Essential hypertension 5. Hyperlipidemia Plan. Patient is stable although he is still states he has very chest pain at rest he and is very concerned about having his pain medication. Pain symptoms probably noncardiac in origin. Continue present medication. Check Lexiscan MPI Subjective Date of service: 02/09/21 Interval history: Complains of vaguely described chest pains wants pain medication. Objective Vital Signs Temp Pulse Resp BP BP Pulse Ox 02/09/21 08:50 97.5 F L 103 H 18 98/67 95 02/09/21 05:56 98.2 F 83 18 95/53 02/09/21 00:00 81 02/08/21 23:35 20 98 02/08/21 21:16 95 H 102/59 02/08/21 17:00 22 02/08/21 16:40 98.3 F 85 18 107/60 93 02/08/21 16:00 97 H 02/08/21 13:00 98 02/08/21 11:32 20 02/08/21 11:29 97 H 02/08/21 11:16 97.7 F 46 L 18 130/84 99 - Physical Examination General: Other (Mild dyspnea) HEENT: Positive: PERRL Neck: Positive: trachea midline Cardiac: Positive: Regular Rate, S1/S2, S3, PMI, Dilated, Laterally Displaced Lungs: Positive: clear to auscultation, No Wheeze, Rales, Rhonchi Neuro: Positive: Grossly Intact, No Lateralizing Findings Abdomen: Positive: Soft Extremities: Absent: edema - Labs and Meds CBC 02/09/21 Range/Units 07:45 WBC 8.1 (4.5-11.0) K/mm3 RBC 4.57 (3.65-5.03) M/mm3 Hgb 13.9 (11.8-15.2) gm/dl Hct 40.9 (35.5-45.6) % Plt Count 347 (140-440) K/mm3 - Telemetry EKG Rhythm: Atrial Fibrillation
[2021-02-09] MEDS: SPIRONOLACTONE 25 MG TAB PO SCH (10:54)
[2021-02-09] MEDS: FUROSEMIDE 20 MG TAB PO SCH (10:55)
[2021-02-09] MEDS: METOPROLOL TARTRATE 25 MG TAB PO SCH ×2 (10:55→21:09)
[2021-02-09] MEDS: ALPRAZolam 1 MG TAB PO PRN ×2 (10:55→20:06)
[2021-02-09] MEDS: LISINOPRIL 5 MG TAB PO SCH (10:58)
--- NOTE | 2021-02-09 11:11 | Progress Note ---
Assessment and Plan Assessment and plan: 1) Acute coronary syndrome Current Visit: Yes Status: Acute Plan to address problem: Admit the patient to the medical telemetry. Aspirin 325 mg p.o. daily. Lipitor 40 mg p.o. daily. Nitroglycerin as needed. Morphine 2 mg IV every 4 hours as needed. We will do the serial cardiac enzyme. Echocardiogram. Cardiology ev aluation (2) New onset atrial fibrillation Current Visit: Yes Status: Acute Plan to address problem: Lopressor 25 mg p.o. twice daily. We will do the serial cardiac enzyme. Echocardiogram. Will consult cardiology for evaluation. Heparin 5000 units subcu every 8 hours (3) Hypertension Current Visit: Yes Status: Acute Plan to address problem: Lopressor 25 mg p.o. twice daily. Hydralazine 10 mg IV every 6 hours as needed. We continue the home medication (4) Hyperlipidemia Current Visit: Yes Status: Acute Plan to address problem: Lipitor 40 mg p.o. daily. We recheck the lipid panel in the morning (5) Right foot pain Current Visit: Yes Status: Acute Plan to address problem: Tylenol 650 mg p.o. every 6 hours as needed. Morphine 2 mg IV every 4 hours as needed. We will monitor the patient closely. If needed will consult orthopedic (6) DVT prophylaxis Current Visit: Yes Status: Acute Plan to address problem: Heparin 5000 units subcu every 8 hours for DVT prophylaxis. Protonix 40 mg p.o. daily for GI prophylaxis. Patient is a full code. 02/08/21 Patient with hypertension, hyperlipidemia, presents with chest pain. EF 20-25%. Patient started on Milrinone drip for possible acute systolic CHF, as per cardiology Patient needs social service. he is homeless. Commercial Instructor Supervisor aware. 02/09/21 Patient with hypertension, hyperlipidemia, presents with chest pain. EF 20-25%. Patient started on Milrinone drip for possible acute systolic CHF, as per cardiology Stress test done report pending. Patient needs social service. He is homeless. Commercial Instructor Supervisor aware. History Interval history: Chest pain Hospitalist Physical - Physical exam Narrative exam: Gen:Not in acute distress, lying in bed HEENT:Normocephalic, atraumatic Neck:supple, no JVD Lungs:clear to auscultation, bilaterally, no wheeze Heart:S1 and S2 reg, no murmurs, rubs or gallop Abd:Soft, non tender, non distended, normal bowel sounds Ext:No edema. no clubbing, no cyanosis Neuro:Awake,alert, - Constitutional Vitals: Temp Pulse Resp BP Pulse Ox 97.5 F L 103 H 18 106/60 95 02/09/21 08:50 02/09/21 08:50 02/09/21 08:50 02/09/21 10:58 02/09/21 08:50 General appearance: Present: no acute distress HEART Score - HEART Score EKG: Non-specific Age: 45-65 Risk factors: > 3 risk factors or hx of atherosclerotic disease Troponin: Troponin T < 0.010 ng/mL (0.00-0.029) 02/07/21 12:46 Troponin: < normal limit Results - Labs CBC & Chem 7: 02/09/21 07:45 02/07/21 12:46 Labs: Laboratory Last Values WBC 8.1 K/mm3 (4.5-11.0) 02/09/21 07:45 RBC 4.57 M/mm3 (3.65-5.03) 02/09/21 07:45 Hgb 13.9 gm/dl (11.8-15.2) 02/09/21 07:45 Hct 40.9 % (35.5-45.6) 02/09/21 07:45 MCV 90 fl (84-94) 02/09/21 07:45 MCH 30 pg (28-32) 02/09/21 07:45 MCHC 34 % (32-34) 02/09/21 07:45 RDW 16.0 % (13.2-15.2) H 02/09/21 07:45 Plt Count 347 K/mm3 (140-440) 02/09/21 07:45 Lymph % (Auto) 26.0 % (13.4-35.0) 02/07/21 03:07 Andrews % (Auto) 10.7 % (0.0-7.3) H 02/07/21 03:07 Eos % (Auto) 3.3 % (0.0-4.3) 02/07/21 03:07 Baso % (Auto) 0.9 % (0.0-1.8) 02/07/21 03:07 Lymph # (Auto) 2.1 K/mm3 (1.2-5.4) 02/07/21 03:07 Andrews # (Auto) 0.9 K/mm3 (0.0-0.8) H 02/07/21 03:07 Eos # (Auto) 0.3 K/mm3 (0.0-0.4) 02/07/21 03:07 Baso # (Auto) 0.1 K/mm3 (0.0-0.1) 02/07/21 03:07 Seg Neutrophils % 59.1 % (40.0-70.0) 02/07/21 03:07 Seg Neutrophils # 4.8 K/mm3 (1.8-7.7) 02/07/21 03:07 PT 15.4 Sec. (12.2-14.9) H 02/07/21 12:46 INR 1.16 (0.87-1.13) H 02/07/21 12:46 APTT 31.9 Sec. (24.2-36.6) 02/07/21 12:46 Sodium 138 mmol/L (137-145) 02/07/21 03:07 Potassium 4.3 mmol/L (3.6-5.0) 02/07/21 03:07 Chloride 103.4 mmol/L (98-107) 02/07/21 03:07 Carbon Dioxide 25 mmol/L (22-30) 02/07/21 03:07 Anion Gap 14 mmol/L 02/07/21 03:07 BUN 27 mg/dL (9-20) H 02/07/21 03:07 Creatinine 0.9 mg/dL (0.8-1.3) 02/07/21 12:46 Estimated GFR > 60 ml/min 02/07/21 12:46 BUN/Creatinine Ratio 27 % 02/07/21 03:07 Glucose 120 mg/dL (75-100) H 02/07/21 03:07 POC Glucose 107 mg/dL (70-105) H 02/08/21 07:30 Calcium 9.3 mg/dL (8.4-10.2) 02/07/21 03:07 Total Bilirubin 0.20 mg/dL (0.1-1.2) 02/06/21 21:47 AST 20 units/L (5-40) 02/06/21 21:47 ALT 26 units/L (7-56) 02/06/21 21:47 Alkaline Phosphatase 101 units/L (35-129) 02/06/21 21:47 Troponin T < 0.010 ng/mL (0.00-0.029) 02/07/21 12:46 Total Protein 7.2 g/dL (6.3-8.2) 02/06/21 21:47 Albumin 3.7 g/dL (3.9-5) L 02/06/21 21:47 Albumin/Globulin Ratio 1.1 % 02/06/21 21:47 Triglycerides 74 mg/dL (2-149) 02/07/21 03:07 Cholesterol 144 mg/dL (50-199) 02/07/21 03:07 LDL Cholesterol Direct 95 mg/dL (50-130) 02/07/21 03:07 HDL Cholesterol 46 mg/dL (40-59) 02/07/21 03:07 Cholesterol/HDL Ratio 3.13 % 02/07/21 03:07 Sotelo/IV: Voiding Method Toilet Active Medications - Current Medications Current Medications: Generic Name Dose Route Start Last Admin Trade Name Freq PRN Reason Stop Dose Admin Acetaminophen 650 mg 02/07/21 02:42 Acetaminophen 325 Mg Tab PO Q6H PRN Pain, Mild (1-3) Alprazolam 1 mg 02/08/21 20:05 02/09/21 10:55 Alprazolam 1 Mg Tab PO 1 mg Q8H PRN Administration Anxiety Apixaban 5 mg 02/07/21 22:00 02/09/21 09:04 Apixaban 5 Mg Tab PO 5 mg Q12HR CATRACHO Administration Protocol Atorvastatin Calcium 40 mg 02/07/21 22:00 02/08/21 21:16 Atorvastatin 40 Mg Tab PO 40 mg QHS CATRACHO Administration Furosemide 20 mg 02/07/21 13:00 02/09/21 10:55 Furosemide 20 Mg Tab PO 20 mg QDAY CATRACHO Administration Hydralazine HCl 10 mg 02/07/21 02:54 Hydralazine 20 Mg/1 Ml Inj IV Q6H PRN SBP >/=165; DBP >/=100 Milrinone Lactate/Dextrose 20 mg in 100 mls @ 6.758 mls/hr 02/08/21 10:00 02/09/21 00:26 Milrinone-D5w 20 Mg/100 Ml IV 08/16/21 09:59 0.25 mcg/kg/min DIRECT CATRACHO 6.758 mls/hr Administration Protocol 0.25 MCG/KG/MIN Lisinopril 2.5 mg 02/07/21 14:00 02/09/21 10:58 Lisinopril 5 Mg Tab PO Not Given QDAY CATRACHO Metoprolol Tartrate 25 mg 02/07/21 10:00 02/09/21 10:55 Metoprolol Tartrate 25 Mg Tab PO 25 mg BID CATRACHO Administration Nitroglycerin 0.4 mg 02/07/21 02:42 Nitroglycerin 0.4 Mg Tab Subl SL Q5M PRN Chest Pain Oxycodone/Acetaminophen 1 tab 02/08/21 17:00 02/09/21 09:04 Oxycodone /Acetaminophen 5-325mg Tab PO 1 tab Q6H PRN Administration Pain, Moderate (4-6) Pantoprazole Sodium 40 mg 02/07/21 10:00 02/09/21 09:05 Pantoprazole 40 Mg Tab PO 40 mg QDAY CATRACHO Administration Sodium Chloride 10 ml 02/07/21 02:42 02/09/21 09:05 Sodium Chloride 0.9% 10 Ml Flush Syringe IV 10 ml PRN PRN Administration LINE FLUSH Spironolactone 25 mg 02/07/21 14:00 02/09/21 10:54 Spironolactone 25 Mg Tab PO 25 mg QDAY CATRACHO Administration Tramadol HCl 50 mg 02/07/21 02:42 Tramadol 50 Mg Tab PO Q6H PRN Pain, Moderate (4-6)
[2021-02-10] MEDS: MILRINONE-D5W 20 MG/100 ML 20 MG/100 ML BAG IV SCH (04:36)
[2021-02-10] MEDS: oxyCODONE /ACETAMINOPHEN 5-325MG TAB PO PRN ×2 (04:37→12:15)
[2021-02-10 07:00] LABS: BUN/Creatinine Ratio 28; Blood Urea Nitrogen 28 mg/dL (9-20); Calcium 9.3 mg/dL (8.4-10.2); Hemolysis Index 5
--- NOTE | 2021-02-10 08:35 | Progress Note ---
Assessment and Plan Assessment and plan: 1) Acute coronary syndrome Current Visit: Yes Status: Acute Plan to address problem: Admit the patient to the medical telemetry. Aspirin 325 mg p.o. daily. Lipitor 40 mg p.o. daily. Nitroglycerin as needed. Morphine 2 mg IV every 4 hours as needed. We will do the serial cardiac enzyme. Echocardiogram. Cardiology ev aluation (2) New onset atrial fibrillation Current Visit: Yes Status: Acute Plan to address problem: Lopressor 25 mg p.o. twice daily. We will do the serial cardiac enzyme. Echocardiogram. Will consult cardiology for evaluation. Heparin 5000 units subcu every 8 hours (3) Hypertension Current Visit: Yes Status: Acute Plan to address problem: Lopressor 25 mg p.o. twice daily. Hydralazine 10 mg IV every 6 hours as needed. We continue the home medication (4) Hyperlipidemia Current Visit: Yes Status: Acute Plan to address problem: Lipitor 40 mg p.o. daily. We recheck the lipid panel in the morning (5) Right foot pain Current Visit: Yes Status: Acute Plan to address problem: Tylenol 650 mg p.o. every 6 hours as needed. Morphine 2 mg IV every 4 hours as needed. We will monitor the patient closely. If needed will consult orthopedic (6) DVT prophylaxis Current Visit: Yes Status: Acute Plan to address problem: Heparin 5000 units subcu every 8 hours for DVT prophylaxis. Protonix 40 mg p.o. daily for GI prophylaxis. Patient is a full code. Acute systolic CHF Started on Milrinone drip by cardiology 02/08/21 Patient with hypertension, hyperlipidemia, presents with chest pain. EF 20-25%. Patient started on Milrinone drip for possible acute systolic CHF, as per cardiology Patient needs social service. he is homeless. Script Supervisor aware. 02/09/21 Patient with hypertension, hyperlipidemia, presents with chest pain. EF 20-25%. Patient started on Milrinone drip for possible acute systolic CHF, as per cardiology Stress test done report pending. Patient needs social service. He is homeless. Script Supervisor aware. 02/10/21 Patient with hypertension, hyperlipidemia, presented with chest pain. Acute systolic CHF, EF 20-25%. Patient started on Milrinone drip for likely acute systolic CHF, as per cardiology Stress test done report pending. Patient needs social service. He is homeless. Script Supervisor aware. History Interval history: Still having Chest pain intermittently Hospitalist Physical - Physical exam Narrative exam: Gen:Not in acute distress, lying in bed,obese HEENT:Normocephalic, atraumatic Neck:supple, no JVD Lungs:clear to auscultation, bilaterally, no wheeze Heart:S1 and S2 reg, no murmurs, rubs or gallop Abd:Soft, non tender, non distended, normal bowel sounds Ext:No edema. no clubbing, no cyanosis Neuro:Awake,alert, oriented x 3, moves all ext - Constitutional Vitals: Temp Pulse Resp BP Pulse Ox 98.4 F 85 18 121/77 95 02/10/21 05:19 02/10/21 05:19 02/10/21 05:19 02/10/21 05:19 02/10/21 05:19 General appearance: Present: no acute distress HEART Score - HEART Score EKG: Non-specific Age: 45-65 Risk factors: > 3 risk factors or hx of atherosclerotic disease Troponin: Troponin T < 0.010 ng/mL (0.00-0.029) 02/07/21 12:46 Troponin: < normal limit Results - Labs CBC & Chem 7: 02/09/21 07:45 02/10/21 04:29 Labs: Laboratory Last Values WBC 8.1 K/mm3 (4.5-11.0) 02/09/21 07:45 RBC 4.57 M/mm3 (3.65-5.03) 02/09/21 07:45 Hgb 13.9 gm/dl (11.8-15.2) 02/09/21 07:45 Hct 40.9 % (35.5-45.6) 02/09/21 07:45 MCV 90 fl (84-94) 02/09/21 07:45 MCH 30 pg (28-32) 02/09/21 07:45 MCHC 34 % (32-34) 02/09/21 07:45 RDW 16.0 % (13.2-15.2) H 02/09/21 07:45 Plt Count 347 K/mm3 (140-440) 02/09/21 07:45 Lymph % (Auto) 26.0 % (13.4-35.0) 02/07/21 03:07 [place] % (Auto) 10.7 % (0.0-7.3) H 02/07/21 03:07 Eos % (Auto) 3.3 % (0.0-4.3) 02/07/21 03:07 Baso % (Auto) 0.9 % (0.0-1.8) 02/07/21 03:07 Lymph # (Auto) 2.1 K/mm3 (1.2-5.4) 02/07/21 03:07 [place] # (Auto) 0.9 K/mm3 (0.0-0.8) H 02/07/21 03:07 Eos # (Auto) 0.3 K/mm3 (0.0-0.4) 02/07/21 03:07 Baso # (Auto) 0.1 K/mm3 (0.0-0.1) 02/07/21 03:07 Seg Neutrophils % 59.1 % (40.0-70.0) 02/07/21 03:07 Seg Neutrophils # 4.8 K/mm3 (1.8-7.7) 02/07/21 03:07 PT 15.4 Sec. (12.2-14.9) H 02/07/21 12:46 INR 1.16 (0.87-1.13) H 02/07/21 12:46 APTT 31.9 Sec. (24.2-36.6) 02/07/21 12:46 Sodium 139 mmol/L (137-145) 02/10/21 04:29 Potassium 4.1 mmol/L (3.6-5.0) 02/10/21 04:29 Chloride 103.5 mmol/L (98-107) 02/10/21 04:29 Carbon Dioxide 23 mmol/L (22-30) 02/10/21 04:29 Anion Gap 17 mmol/L 02/10/21 04:29 BUN 28 mg/dL (9-20) H 02/10/21 04:29 Creatinine 1.0 mg/dL (0.8-1.3) 02/10/21 04:29 Creatinine 1.0 mg/dL (0.8-1.3) 02/10/21 04:29 Estimated GFR > 60 ml/min 02/10/21 04:29 Estimated GFR > 60 ml/min 02/10/21 04:29 BUN/Creatinine Ratio 28 % 02/10/21 04:29 Glucose 95 mg/dL (75-100) 02/10/21 04:29 POC Glucose 107 mg/dL (70-105) H 02/08/21 07:30 Calcium 9.3 mg/dL (8.4-10.2) 02/10/21 04:29 Total Bilirubin 0.20 mg/dL (0.1-1.2) 02/06/21 21:47 AST 20 units/L (5-40) 02/06/21 21:47 ALT 26 units/L (7-56) 02/06/21 21:47 Alkaline Phosphatase 101 units/L (35-129) 02/06/21 21:47 Troponin T < 0.010 ng/mL (0.00-0.029) 02/07/21 12:46 Total Protein 7.2 g/dL (6.3-8.2) 02/06/21 21:47 Albumin 3.7 g/dL (3.9-5) L 02/06/21 21:47 Albumin/Globulin Ratio 1.1 % 02/06/21 21:47 Triglycerides 74 mg/dL (2-149) 02/07/21 03:07 Cholesterol 144 mg/dL (50-199) 02/07/21 03:07 LDL Cholesterol Direct 95 mg/dL (50-130) 02/07/21 03:07 HDL Cholesterol 46 mg/dL (40-59) 02/07/21 03:07 Cholesterol/HDL Ratio 3.13 % 02/07/21 03:07 [place]/IV: Voiding Method Toilet Active Medications - Current Medications Current Medications: Generic Name Dose Route Start Last Admin Trade Name Freq PRN Reason Stop Dose Admin Acetaminophen 650 mg 02/07/21 02:42 Acetaminophen 325 Mg Tab PO Q6H PRN Pain, Mild (1-3) Alprazolam 1 mg 02/08/21 20:05 02/09/21 20:06 Alprazolam 1 Mg Tab PO 1 mg Q8H PRN Administration Anxiety Apixaban 5 mg 02/07/21 22:00 02/09/21 21:09 Apixaban 5 Mg Tab PO 5 mg Q12HR CATRACHO Administration Protocol Atorvastatin Calcium 40 mg 02/07/21 22:00 02/09/21 21:09 Atorvastatin 40 Mg Tab PO 40 mg QHS CATRACHO Administration Furosemide 20 mg 02/07/21 13:00 02/09/21 10:55 Furosemide 20 Mg Tab PO 20 mg QDAY CATRACHO Administration Hydralazine HCl 10 mg 02/07/21 02:54 Hydralazine 20 Mg/1 Ml Inj IV Q6H PRN SBP >/=165; DBP >/=100 Milrinone Lactate/Dextrose 20 mg in 100 mls @ 6.758 mls/hr 02/08/21 10:00 02/10/21 04:36 Milrinone-D5w 20 Mg/100 Ml IV 02/11/21 09:59 0.25 mcg/kg/min DIRECT CATRACHO 6.758 mls/hr Administration Protocol 0.25 MCG/KG/MIN Lisinopril 2.5 mg 02/07/21 14:00 02/09/21 10:58 Lisinopril 5 Mg Tab PO Not Given QDAY CATRACHO Metoprolol Tartrate 25 mg 02/07/21 10:00 02/09/21 21:09 Metoprolol Tartrate 25 Mg Tab PO 25 mg BID CATRACHO Administration Nitroglycerin 0.4 mg 02/07/21 02:42 Nitroglycerin 0.4 Mg Tab Subl SL Q5M PRN Chest Pain Oxycodone/Acetaminophen 1 tab 02/08/21 17:00 02/10/21 04:37 Oxycodone /Acetaminophen 5-325mg Tab PO 1 tab Q6H PRN Administration Pain, Moderate (4-6) Pantoprazole Sodium 40 mg 02/07/21 10:00 02/09/21 09:05 Pantoprazole 40 Mg Tab PO 40 mg QDAY CATRACHO Administration Sodium Chloride 10 ml 02/07/21 02:42 02/09/21 21:09 Sodium Chloride 0.9% 10 Ml Flush Syringe IV 10 ml PRN PRN Administration LINE FLUSH Spironolactone 25 mg 02/07/21 14:00 02/09/21 10:54 Spironolactone 25 Mg Tab PO 25 mg QDAY CATRACHO Administration
[2021-02-10] MEDS: SPIRONOLACTONE 25 MG TAB PO SCH (09:44)
[2021-02-10] MEDS: FUROSEMIDE 20 MG TAB PO SCH (09:44)
[2021-02-10] MEDS: PANTOPRAZOLE 40 MG TAB PO SCH (09:44)
[2021-02-10] MEDS: METOPROLOL TARTRATE 25 MG TAB PO SCH (09:44)
[2021-02-10] MEDS: APIXABAN 5 MG TAB PO SCH (09:45)
[2021-02-10] MEDS: ALPRAZolam 1 MG TAB PO PRN (09:47)
--- NOTE | 2021-02-10 10:47 | Progress Note ---
Assessment and Plan 1. Atrial fibrillation with a controlled ventricular response 2. Chronic combined systolic and diastolic heart failure 3. Dilated cardiomyopathy left ventricular ejection fraction 20 to 25% 4. Essential hypertension 5. Hyperlipidemia Plan. Patient is stable Lexiscan MPI test is normal perfusion scan images. Recommend discontinuation of IV milrinone discharge planning as per hospitalist follow-up with the [place] [facility]. Subjective Date of service: 02/10/21 Interval history: No cardiac complains. Objective Vital Signs Temp Pulse Pulse Resp BP BP Pulse Ox 02/10/21 08:23 97.6 F 94 H 18 104/59 98 02/10/21 05:19 98.4 F 85 18 121/77 95 02/10/21 00:42 98.6 F 97 H 18 93/55 94 02/10/21 00:00 89 02/09/21 21:09 82 132/67 02/09/21 20:32 20 98 02/09/21 20:12 98.0 F 18 132/67 02/09/21 16:11 119/65 02/09/21 12:21 109 H 20 97 02/09/21 12:01 98.0 F 65 18 95/67 96 02/09/21 10:58 106/60 02/09/21 10:54 106/60 02/09/21 10:52 18 106/60 - Physical Examination General: Other (Mild dyspnea) HEENT: Positive: PERRL Neck: Positive: trachea midline Cardiac: Positive: Regular Rate, Irregularly Regular, S1/S2, S3, PMI, Laterally Displaced Lungs: Positive: clear to auscultation, No Wheeze, Rales, Rhonchi Neuro: Positive: Grossly Intact, No Lateralizing Findings Abdomen: Positive: Soft Extremities: Absent: edema - Labs and Meds Comprehensive Metabolic Panel 02/10/21 02/10/21 Range/Units 04:29 04:29 Sodium 139 (137-145) mmol/L Potassium 4.1 (3.6-5.0) mmol/L Chloride 103.5 (98-107) mmol/L Carbon Dioxide 23 (22-30) mmol/L BUN 28 H (9-20) mg/dL Creatinine 1.0 1.0 (0.8-1.3) mg/dL Glucose 95 (75-100) mg/dL Calcium 9.3 (8.4-10.2) mg/dL - Telemetry EKG Rhythm: Atrial Fibrillation
[2021-02-10] MEDS: LISINOPRIL 5 MG TAB PO SCH (12:16)
[2021-02-10 12:17] VITALS: BP 114/68
--- NOTE | 2021-02-11 07:24 | Event Note ---
Patient left AMA yesterday
--- NOTE | 2021-02-11 07:25 | Discharge Summary ---
Providers - Providers Date of Admission: 02/07/21 13:51 Date of discharge: 02/23/21 Attending physician: ROSS QUEEN 02/07/21 Consult to Cardiac Rehabilitation [CONS] Routine Reason For Exam: Phase I 02/07/21 02:42 Consult to Cardiology [CONS] Routine Consulting Provider: KENYATTA FUCHS Reason For Exam: Brittany gilbert Primary care physician: YARD PIPE GRADER Hospitalization Condition: Poor Hospital course: Elliott 60-year-old male with past medical history of hypertension, myocardial infarction, hyperlipidemia was brought to the emergency room because of chest pain, palpitations and shortness of breath for 3 hours prior to arrival. His Troponins were negative. He was admitted, seen by Cardiology. Was startaed on Milrinone drip for acute systolic CHF. However on 02/10/21 he signed out against medical advice. (2) New onset atrial fibrillation Current Visit: Yes Status: Acute Plan to address problem: Lopressor 25 mg p.o. twice daily. We will do the serial cardiac enzyme. Echocardiogram. Will consult cardiology for evaluation. Heparin 5000 units subcu every 8 hours (3) Hypertension Current Visit: Yes Status: Acute Plan to address problem: Lopressor 25 mg p.o. twice daily. Hydralazine 10 mg IV every 6 hours as needed. We continue the home medication (4) Hyperlipidemia Current Visit: Yes Status: Acute Plan to address problem: Lipitor 40 mg p.o. daily. We recheck the lipid panel in the morning (5) Right foot pain Current Visit: Yes Status: Acute Plan to address problem: Tylenol 650 mg p.o. every 6 hours as needed. Morphine 2 mg IV every 4 hours as needed. We will monitor the patient closely. If needed will consult orthopedic (6) DVT prophylaxis Current Visit: Yes Status: Acute Plan to address problem: Heparin 5000 units subcu every 8 hours for DVT prophylaxis. Protonix 40 mg p.o. daily for GI prophylaxis. Patient is a full code. Acute systolic CHF Started on Milrinone drip by cardiology 02/08/21 Patient with hypertension, hyperlipidemia, presents with chest pain. EF 20-25%. Patient started on Milrinone drip for possible acute systolic CHF, as per cardiology Patient needs social service. he is homeless. Staff Radiologist aware. 02/09/21 Patient with hypertension, hyperlipidemia, presents with chest pain. EF 20-25%. Patient started on Milrinone drip for possible acute systolic CHF, as per cardiology Stress test done report pending. Patient needs social service. He is homeless. Staff Radiologist aware. 02/10/21 Patient with hypertension, hyperlipidemia, presented with chest pain. Acute systolic CHF, EF 20-25%. Patient started on Milrinone drip for acute systolic CHF, as per cardiology Stress test done report pending. Patient needs social service. He is homeless. Staff Radiologist aware. Patient left against medical advice on 02/10/21 Disposition: 07 LEFT AGAINST MEDICAL ADVICE Final Discharge Diagnosis (Prints w/discharge instructions): 1.Acute systolic CHF. 2.Atrial Fibrillation Time spent for discharge: 35 mins - Discharge Diagnoses (1) Acute systolic CHF (congestive heart failure) Status: Acute (2) Atrial fibrillation Status: Acute (3) Dilated cardiomyopathy Status: Acute (4) Hyperlipidemia Status: Acute (5) Hypertension Status: Acute (6) New onset atrial fibrillation Status: Acute (7) GERD (gastroesophageal reflux disease) Status: Acute (8) Chest pain Status: Acute Qualifiers: Chest pain type: unspecified Qualified Code(s): R07.9 - Chest pain, unspecified Comment: Due to GERD Core Measure Documentation - Palliative Care Palliative Care/ Comfort Measures: Not Applicable - Core Measures Any of the following diagnoses?: heart failure - Heart Failure Discharge Requirements CAROLYN/ARB for LVSD if EF <40%: No Reason for no CAROLYN/ARB: Patient refusal Beta jose j at discharge: No Reason for no beta jose j on DC: Patient refusal (Left AMA) Exam - Constitutional Vitals: Temp Pulse Resp BP Pulse Ox 97.6 F 94 H 18 114/68 98 02/10/21 08:23 02/10/21 08:23 02/10/21 08:23 02/10/21 12:16 02/10/21 08:23 Plan Follow up with: CORRINA GOMEZ MD [Primary Care Provider] - 3-5 Days Forms: AMA Form
--- NOTE | 2021-02-11 14:01 | Nuclear Medicine Report ---
APPROVED REPORT Exam: Nuclear Stress Test Indication: Chest pain Ht: 5 ft 9 in Wt: 170 lbs BSA: 1.93 m2 BMI: 25.10 Stress Test Details Stress Test: Pharmacologic stress testing performed using 0.4 mg of regadenoson per 5 mL given IV over 10 seconds. HR Resting HR: 90 bpm Max HR Achieved: 134 bpm Max Heart Rate (APMHR): 159 bpm Target HR (85% APMHR): 135 bpm % of APMHR: 84 Recovery HR: 93 bpm HR response to stress: Normal HR response to stress BP Resting BP: 104/66 mmHg Max BP: 112/78 mmHg Recovery BP: 86/65 mmHg BP response to stress: Transient low BP with Lexiscan. ECG Resting ECG: Atrial Fibrillation Stress ECG: Atrial Fibrillation with Tachy ST Change: None Arrhythmia: Atrial Fibrillation Recovery ECG: Atrial Fibrillation Recovery ST Change: None Recovery Arrhythmia: Atrial Fibrillation Clinical Reason for Termination: Completed protocol Stress Symptoms: Nausea,Hypotensive Stress ECG Conclusion No angina with Lexiscan, transient low BP following Lexiscan injection, no ST changes of ischemia. Myocardial perfusion images are pending for final test interpretation. NM EXAM: Myocardial Perfusion REST/STRESS Resting Data Rest SPECT myocardial perfusion imaging was performed in supine position 45 minutes following the intravenous injection of 10 mCi of Tc-99m Myoview. Time of rest injection: 0700 Pharmacologic Stress Pharmacologic stress test was performed by injecting Regadenoson 0.4 mg IV push followed by the intravenous injection of 28 mCi of Tc-99m Myoview. Time of stress injection: 929 Date: 02/08/2021 Comments The patient is in a-fib.The study wasn't gated. Study Data TID = 0.97. Perfusion Nuclear Conclusion ECG Findings: negative for ischemia Clinical Findings: negative for ischemia Nuclear Findings: negative for ischemia Risk Study: low Normal rest and stress myocardial perfusion images, no ischemia demonstrated. Normal myocardial perfusion study. Gated analysis is not available due to the presence of atrial fibrillation. If indicated, recommend echocardiogram for left ventricular function assessment. Conclusion No angina with Lexiscan, transient low BP following Lexiscan injection, no ST changes of ischemia. Myocardial perfusion images are pending for final test interpretation.
== END 2021-02-10 16:00 | disposition left against medical advice (07) | DRG 309 ==
LOC: ED 20:30 → 4A 02-07 00:36 → OBSVTOIN 02-07 13:51
PROVIDERS: ADMIT Hospitalist; ATTEND Internal Medicine
DX: I48.91 Unspecified atrial fibrillation (principal); I50.42 Chronic combined systolic (congestive) and diastolic (congestive) heart failure; I42.0 Dilated cardiomyopathy; I24.9 Acute ischemic heart disease, unspecified; E78.5 Hyperlipidemia, unspecified; F17.200 Nicotine dependence, unspecified, uncomplicated; S90.31XA Contusion of right foot, initial encounter; I11.0 Hypertensive heart disease with heart failure; Z59.0 Homelessness; Z79.899 Other long term (current) drug therapy
CPT/HCPCS: 36415; 71045; 78452; 80048; 80053; 80061; 82565; 82962; 84484; 85025; 85027; 85610; 85730; 93005; 93017; 93306; 99406; G0378; A9270-GY; A9502; J1644; J2260; J2270; J2405; J2785; J7040